=== PATIENT | female | born 1950 | race Caucasian/White ===

== ENCOUNTER 2022-11-05 09:33 | Outpatient (CLI) | payer MEDICARE, OTHER | END 2022-11-05 09:34 | disposition home or self-care (01) | LOC: CSHMAMMO 09:33 | PROVIDERS: ATTEND Family Medicine | DX: Z12.31 Encounter for screening mammogram for malignant neoplasm of breast (principal) | CPT/HCPCS: 77063; 77067 ==

== ENCOUNTER 2024-12-09 12:36 | Outpatient (CLI) | payer MEDICARE | END 2024-12-09 12:37 | disposition home or self-care (01) | LOC: CSHMAMMO 12:36 | PROVIDERS: ATTEND Family Medicine | DX: Z12.31 Encounter for screening mammogram for malignant neoplasm of breast (principal) | CPT/HCPCS: 77063; 77067 ==

== ENCOUNTER 2025-01-27 11:17 | Outpatient (CLI) | payer MEDICARE | END 2025-01-27 11:18 | disposition home or self-care (01) | LOC: CSHCT 11:17 | PROVIDERS: ATTEND Family Medicine | DX: G45.8 Other transient cerebral ischemic attacks and related syndromes (principal); R41.82 Altered mental status, unspecified | CPT/HCPCS: 70450 ==